=== PATIENT | female | born 1980 | race Caucasian/White ===

== ENCOUNTER → 2019-03-17 | Outpatient (CLI) | payer BC ==
[2019-03-18 04:08] LABS: ESTRADIOL LEVEL 43.1 pg/mL (.); PROGESTERONE 0.6 ng/mL (.); TESTOSTERONE TOTAL 24 ng/dL (8-48)
[2019-03-18 13:03] LABS: FREE T4 1.03 ng/dL (0.76-1.46); THYROID STIM HORMONE (TSH) 4.27 uIU/mL (0.358-3.740)
== END | disposition home or self-care (01) ==
LOC: LAB 13:31
PROVIDERS: ATTEND Family Medicine
DX: N94.3 Premenstrual tension syndrome (principal); E03.9 Hypothyroidism, unspecified; Z79.899 Other long term (current) drug therapy
CPT/HCPCS: 36415; 82306; 82670; 84144; 84403; 84439; 84443; 84481